=== PATIENT | male | born 1970 | race Caucasian/White ===

== ENCOUNTER 2024-02-11 00:33 | Emergency (ER) | payer MEDICARE, MEDICAID, OTHER ==
[~2024-02-11] VITALS: Ht 182.9 cm; Wt 131.8 kg
[~2024-02-11 00:33] MED LIST: ATOR20TA PO; CHLO25TA69 PO; FLUO10CA24 PO; GABA-1216 PO; LAMO25TA66 PO; METO25 PO; OLAN20TA2 PO
[2024-02-11 00:48] VITALS: TEMP 97.9
[2024-02-11 01:05] LABS: BASOPHILS % (AUTO) 0.4 % (0.0-2.0); EOSINOPHILS % (AUTO) 2.3 % (1.0-6.0); HEMATOCRIT 41.8 % (41-53); HEMOGLOBIN 14.1 g/dL (13.5-17.5); LYMPHOCYTES % (AUTO) 23.1 % (22.0-44.0); MEAN CORPUSCULAR HEMOGLOBIN 28.2 pg (26.0-34.0); MEAN CORPUSCULAR HGB CONC 33.6 G/dL (31.0-37.0); MEAN CORPUSCULAR VOLUME 84 fL (80-100); MONOCYTES # (AUTO) 0.7 K/uL (0.1-1.0); MONOCYTES % (AUTO) 8.1 % (2.0-9.0); NEUTROPHILS # (AUTO) 5.7 K/uL (1.8-7.7); NEUTROPHILS % (AUTO) 66.1 % (40.0-70.0); PLATELET COUNT (AUTO) 153 K/uL (150-450); RED CELL DISTRIBUTION WIDTH 14.5 % (11.5-14.5); WHITE BLOOD COUNT (AUTO) 8.7 K/uL (4.5-11.0)
[2024-02-11 01:14] LABS: ANION GAP 6 mmol/L (8-16); CALCIUM, TOTAL 8.7 mg/dL (8.8-10.5); CARBON DIOXIDE 30 mmol/L (22-29); CHLORIDE 103 mmol/L (98-107); CREATININE 0.77 mg/dL (0.60-1.30); GLOMERULAR FILTR. RATE CALC > 60 mL/min (>60); GLUCOSE,RANDOM 126 mg/dL (70-110); POTASSIUM 3.9 mmol/L (3.5-5.1); SODIUM SERUM 139 mmol/L (136-145); UREA NITROGEN, BLOOD 14 mg/dL (7-18)
[2024-02-11 01:21] LABS: ALANINE AMINOTRANSFERASE 24 U/L (12-78); ALKALINE PHOSPHATASE 108 U/L (46-116); ASPARTATE AMINOTRANSFERASE 16 U/L (15-37); BILIRUBIN,TOTAL 0.4 mg/dL (0.1-1.0); CREATINE KINASE, TOTAL ONLY 74 U/L (39-308); TOTAL PROTEIN, SERUM 6.9 g/dL (6.4-8.2)
[2024-02-11 01:22] LABS: TROPONIN I-HIGH SENSITIVITY 6 ng/L (<76)
[2024-02-11 01:26] LABS: B-TYPE NATRIURETIC PEPTIDE 39 pg/mL (0-100)
[2024-02-11 01:53] LABS: PROTHROMBIN TIME 10.9 SEC (9.4-11.6)
[2024-02-11 03:09] LABS: TROPONIN I-HIGH SENSITIVITY 7 ng/L (<76)
[2024-02-11 04:31] VITALS: BP 137/76; PULSE 77; RESP 16
== END 2024-02-11 05:22 | disposition home or self-care (01) ==
LOC: EMS 00:33
DX: R07.89 Other chest pain (principal); F32.A Depression, unspecified; E11.9 Type 2 diabetes mellitus without complications; I10 Essential (primary) hypertension; F17.210 Nicotine dependence, cigarettes, uncomplicated; F12.90 Cannabis use, unspecified, uncomplicated; Z98.890 Other specified postprocedural states
CPT/HCPCS: 71045; 80053; 82550; 83880; 84484; 85025; 85610; 85730; 93005; 99285; 36415-L1; 36415-TC